=== PATIENT | male | born 1975 | race Two or more races ===

== ENCOUNTER 2022-03-17 08:32 | Day surgery (SDC) | payer OTHER ==
[~2022-03-17] VITALS: Ht 175.3 cm; Wt 65.8 kg
[~2022-03-17 08:32] MED LIST: BACTRIM DS TAB1 EACH PO; KETO10TA2 PO
== END 2022-03-17 18:47 | disposition home or self-care (01) ==
LOC: CIR.AMB 08:32
PROVIDERS: ATTEND Urology
DX: N50.89 Other specified disorders of the male genital organs (principal); N49.2 Inflammatory disorders of scrotum; Z20.822 Contact with and (suspected) exposure to COVID-19; F17.210 Nicotine dependence, cigarettes, uncomplicated